=== PATIENT | female | born 1990 | race Hispanic/Latino ===

== ENCOUNTER 2021-04-29 20:09 | Emergency (ER) | payer SELFPAY ==
[2021-05-03] MEDS ORDERED: LORATADINE10 MG PO (12:16)
[2021-05-03] MEDS ORDERED: ZITHROMAX500 MG PO (12:16)
[2021-05-03] MEDS ORDERED: TESSALON PERLE100 MG PO (12:16)
[2021-05-03] MEDS ORDERED: FAMOTIDINE20 MG PO (12:16)
[2021-05-03] MEDS ORDERED: PREDNISONE20 MG PO (12:16)
== END 2021-04-29 20:27 | disposition left against medical advice (07) ==
LOC: FSED 20:27
DX: Z53.21 Procedure and treatment not carried out due to patient leaving prior to being seen by health care provider (principal)

== ENCOUNTER 2021-04-29 20:32 | Inpatient (IN) | payer SELFPAY ==
[~2021-04-29] VITALS: Ht 160 cm; Wt 69.9 kg
[2021-04-29] MEDS ORDERED: DEXAMETHASONE SOD PHOS 10 MG/1 ML VIAL IV ONE (21:15)
[2021-04-29] MEDS ORDERED: ACETAMINOPHEN 325 MG TAB PO ONE (21:15)
[2021-04-29] MEDS ORDERED: AZITHROMYCIN 500MG/NS 250 ML 250 ML IV ONE (21:15)
[2021-04-29 21:26] LABS: BASOPHILS % 0.2 % (0.0-1.0); HEMATOCRIT 42.2 % (34.2-44.1); HEMOGLOBIN 13.5 g/dL (12.0-16.0); LYMPHOCYTES % 14.7 % (18.0-39.1); MEAN CORPUSCULAR HEMOGLOBIN 28.7 pg (28-32); MEAN CORPUSCULAR VOLUME 89.6 fL (81-99); MONOCYTES # (AUTO) 0.4 (0.2-0.8); MONOCYTES % 6.4 % (4.4-11.3); NEUTROPHILS # (AUTO) 5.2 (2.1-6.9); NEUTROPHILS % 78.4 % (38.7-80.0); PLATELET COUNT 228 x10e3/uL (140-360); RED BLOOD COUNT 4.71 x10e6/uL (3.6-5.1); RED CELL DISTRIBUTION WIDTH 13.2 % (11.7-14.4)
[2021-04-29] MEDS ORDERED: SODIUM CHLORIDE 0.9% 1000ML 1,000 ML ONE (21:28)
[2021-04-29] MEDS ORDERED: ACETAMINOPHEN 325 MG TAB ONE (21:28)
[2021-04-29] MEDS ORDERED: DEXAMETHASONE SOD PHOS 10 MG/1 ML VIAL ONE (21:28)
[2021-04-29 21:50] LABS: ALANINE AMINOTRANSFERASE 272 IU/L (0-55); ALBUMIN 3.8 g/dL (3.5-5.0); ALBUMIN/GLOBULIN RATIO 0.9 (0.8-2.0); ALKALINE PHOSPHATASE 198 IU/L (40-150); ANION GAP 15.7 mmol/L (8-16); BLOOD UREA NITROGEN 8 mg/dL (7-26); BUN/CREATININE RATIO 11 (6-25); CALCIUM 8.7 mg/dL (8.4-10.2); CARBON DIOXIDE 26 mmol/L (22-29); CHLORIDE 101 mmol/L (98-107); CREATINE KINASE 47 IU/L (29-168); CREATININE, SERUM 0.72 mg/dL (0.57-1.11); EST GLOMERULAR FILTRATION RATE 94 ML/MIN (60-); GLUCOSE 102 mg/dL (74-118); POTASSIUM 3.7 mmol/L (3.5-5.1); SODIUM 139 mmol/L (136-145)
[2021-04-29] MEDS ORDERED: REMDESIVIR 200MG/NS 100ML 200 MG in SODIUM CHLORIDE 0.9% 100 ML 100 ML IV ONE (23:15)
[2021-04-29] MEDS ORDERED: SODIUM CHLORIDE 0.9% 50ML 50 ML ONE (23:21)
[2021-04-29] MEDS ORDERED: IOPAMIDOL 370 MG/ML 200 ML INFUS..BTL INJ ONE (23:21)
[2021-04-30] MEDS: ENOXAPARIN 30 MG/0.3 ML SYR SC SCH ×3 (00:04→17:09)
[2021-04-30] MEDS ORDERED: REMDESIVIR 200MG/NS 100ML 200 MG IV ONE (01:14)
[2021-04-30] MEDS ORDERED: ACETAMINOPHEN 325 MG TAB PO PRN (07:00)
[2021-04-30] MEDS ORDERED: ONDANSETRON HCL INJ 2MG/ML 2ML 2 MG/ML VIAL IV PRN (07:15)
[2021-04-30] MEDS ORDERED: DOCUSATE SODIUM 100 MG CAP PO PRN (07:15)
[2021-04-30] MEDS ORDERED: GUAIFENESIN/DEXTROMETHORPHAN LIQD 5 ML UDC NG PRN (07:15)
[2021-04-30] MEDS ORDERED: ENOXAPARIN 30 MG/0.3 ML SYR SC SCH (09:00)
[2021-04-30] MEDS: CEFTRIAXONE 1 GM in SODIUM CHLORIDE 0.9% 50ML 50 ML IV SCH (09:27)
[2021-04-30] MEDS: LORATADINE 10 MG TAB PO SCH (09:27)
[2021-04-30] MEDS: BENZONATATE 100 MG CAP PO SCH ×3 (09:27→20:45)
[2021-04-30] MEDS: FAMOTIDINE 20 MG TAB PO SCH ×2 (09:27→17:09)
[2021-04-30 11:52] LABS: HEMATOCRIT 38.8 % (34.2-44.1); HEMOGLOBIN 12.4 g/dL (12.0-16.0); LYMPHOCYTES # (AUTO) 0.7 (1.0-3.2); MEAN CORPUSCULAR HEMOGLOBIN 28.8 pg (28-32); MONOCYTES # (AUTO) 0.5 (0.2-0.8); MONOCYTES % 8.9 % (4.4-11.3); NEUTROPHILS # (AUTO) 4.1 (2.1-6.9); NEUTROPHILS % 77.7 % (38.7-80.0); PLATELET COUNT 230 x10e3/uL (140-360); RED BLOOD COUNT 4.31 x10e6/uL (3.6-5.1); RED CELL DISTRIBUTION WIDTH 13.3 % (11.7-14.4)
[2021-04-30 12:12] LABS: ALBUMIN 3.2 g/dL (3.5-5.0); ALBUMIN/GLOBULIN RATIO 0.8 (0.8-2.0); ANION GAP 16.2 mmol/L (8-16); CALCIUM 8.4 mg/dL (8.4-10.2); CREATININE, SERUM 0.63 mg/dL (0.57-1.11); POTASSIUM 4.2 mmol/L (3.5-5.1)
[2021-04-30 15:55] VITALS: BP 111/86
[2021-04-30 16:22] VITALS: BP 111/86
[2021-04-30 19:05] VITALS: BP 111/77
[2021-04-30] MEDS ORDERED: SODIUM CHLORIDE 0.9% 250ML 250 ML ONE (20:32)
[2021-04-30 21:34] VITALS: BP 111/77
[2021-04-30] MEDS ORDERED: REMDESIVIR 100MG/NS 100ML 100 MG IV ONE (23:30)
[2021-04-30] MEDS: REMDESIVIR 100MG/NS 100ML 100 MG in SODIUM CHLORIDE 0.9% 100 ML 100 ML IV SCH (23:49)
[2021-05-01] VITALS (8 sets, daily range): BP systolic 100–145; BP diastolic 62–87
[2021-05-01] MEDS: BENZONATATE 100 MG CAP PO SCH ×3 (08:24→20:49)
[2021-05-01] MEDS: LORATADINE 10 MG TAB PO SCH (08:24)
[2021-05-01] MEDS: ENOXAPARIN 30 MG/0.3 ML SYR SC SCH ×2 (08:24→16:16)
[2021-05-01] MEDS: CEFTRIAXONE 1 GM in SODIUM CHLORIDE 0.9% 50ML 50 ML IV SCH (08:24)
[2021-05-01] MEDS: DEXAMETHASONE SOD PHOS 10 MG/1 ML VIAL IV SCH (08:24)
[2021-05-01] MEDS: FAMOTIDINE 20 MG TAB PO SCH ×2 (08:24→16:16)
[2021-05-01] MEDS: ZOLPIDEM TARTRATE 5 MG TAB PO PRN (20:50)
[2021-05-01] MEDS: REMDESIVIR 100MG/NS 100ML 100 MG in SODIUM CHLORIDE 0.9% 100 ML 100 ML IV SCH (22:29)
[2021-05-02] VITALS (7 sets, daily range): BP systolic 97–113; BP diastolic 66–83
[2021-05-02 05:40] LABS: HEMATOCRIT 38.3 % (34.2-44.1); HEMOGLOBIN 12.3 g/dL (12.0-16.0); LYMPHOCYTES % 29.3 % (18.0-39.1); MEAN CORPUSCULAR HEMOGLOBIN 28.6 pg (28-32); MEAN CORPUSCULAR HGB CONC 32.1 g/dL (31-35); MEAN CORPUSCULAR VOLUME 89.1 fL (81-99); MONOCYTES # (AUTO) 0.5 (0.2-0.8); MONOCYTES % 13.5 % (4.4-11.3); NEUTROPHILS % 56.6 % (38.7-80.0); PLATELET COUNT 284 x10e3/uL (140-360); RED CELL DISTRIBUTION WIDTH 13.2 % (11.7-14.4)
[2021-05-02 06:08] LABS: ALBUMIN/GLOBULIN RATIO 0.8 (0.8-2.0); CALCIUM 8.4 mg/dL (8.4-10.2); CREATININE, SERUM 0.6 mg/dL (0.57-1.11)
[2021-05-02] MEDS: FAMOTIDINE 20 MG TAB PO SCH ×2 (08:31→16:33)
[2021-05-02] MEDS: ENOXAPARIN 30 MG/0.3 ML SYR SC SCH ×2 (08:31→16:33)
[2021-05-02] MEDS: DEXAMETHASONE SOD PHOS 10 MG/1 ML VIAL IV SCH (08:31)
[2021-05-02] MEDS: LORATADINE 10 MG TAB PO SCH (08:31)
[2021-05-02] MEDS: CEFTRIAXONE 1 GM in SODIUM CHLORIDE 0.9% 50ML 50 ML IV SCH (08:31)
[2021-05-02] MEDS: BENZONATATE 100 MG CAP PO SCH ×3 (08:31→21:32)
[2021-05-02 09:15] LABS: LYMPHOCYTES % (MANUAL) 30 % (19-48); MONOCYTES % (MANUAL) 8 % (3.4-9.0); NEUTROPHILS % (MANUAL) 62 % (40-74)
[2021-05-02 09:24] LABS: PLATELET ESTIMATE ADEQUATE; PLATELET MORPHOLOGY COMMENT NORMAL; RBC MORPHOLOGY COMMENT NORMAL
[2021-05-02] MEDS: ZOLPIDEM TARTRATE 5 MG TAB PO PRN (21:32)
[2021-05-02] MEDS: REMDESIVIR 100MG/NS 100ML 100 MG in SODIUM CHLORIDE 0.9% 100 ML 100 ML IV SCH (23:05)
[2021-05-03 00:23] VITALS: BP 109/76
[2021-05-03 05:09] VITALS: BP 109/76
[2021-05-03] MEDS: FAMOTIDINE 20 MG TAB PO SCH (08:12)
[2021-05-03 08:30] VITALS: BP 102/77
[2021-05-03 08:39] VITALS: BP 102/77
[2021-05-03] MEDS: ENOXAPARIN 30 MG/0.3 ML SYR SC SCH (09:00)
[2021-05-03] MEDS: DEXAMETHASONE SOD PHOS 10 MG/1 ML VIAL IV SCH (09:05)
[2021-05-03] MEDS: BENZONATATE 100 MG CAP PO SCH (09:05)
[2021-05-03] MEDS: CEFTRIAXONE 1 GM in SODIUM CHLORIDE 0.9% 50ML 50 ML IV SCH (09:05)
[2021-05-03] MEDS: LORATADINE 10 MG TAB PO SCH (09:05)
[2021-05-03 12:11] VITALS: BP 104/74
[2021-05-03] MEDS ORDERED: ZITHROMAX500 MG PO (12:16)
[2021-05-03] MEDS ORDERED: LORATADINE10 MG PO (12:16)
[2021-05-03] MEDS ORDERED: TESSALON PERLE100 MG PO (12:16)
[2021-05-03] MEDS ORDERED: FAMOTIDINE20 MG PO (12:16)
[2021-05-03] MEDS ORDERED: PREDNISONE20 MG PO (12:16)
[2021-05-03] MEDS ORDERED: ONDANSETRON HCL 4 MG ORAL DISINTEGRATING TAB PO PRN (12:30)
== END 2021-05-03 14:10 | disposition home or self-care (01) | DRG 871 ==
LOC: ER 21:25 → ERHOLD 23:45 → MED/SURG3 04-30 15:52
PROVIDERS: ADMIT Internal Medicine; ATTEND Internal Medicine
PROC: 8E0ZXY6 Isolation (ICD-10-PCS; principal; 2021-04-29)
PROC: XW033E5 Introduction of Remdesivir Anti-infective into Peripheral Vein, Percutaneous Approach, New Technology Group 5 (ICD-10-PCS; 2021-04-30)
DX: A41.89 Other specified sepsis (principal); U07.1 COVID-19; J12.82 Pneumonia due to coronavirus disease 2019; J96.01 Acute respiratory failure with hypoxia; K75.9 Inflammatory liver disease, unspecified; E66.3 Overweight; Z68.27 Body mass index [BMI] 27.0-27.9, adult
CPT/HCPCS: 36415; 71260; 80053; 82550; 82553; 84484; 84702; 85025; 99285; J0456; J0696; J1100; J1650; J7030; J7050; Q9967; U0002